=== PATIENT | male | born 1940 | race Caucasian/White ===

== ENCOUNTER 2024-01-21 09:26 | Outpatient (CLI) | payer MEDICARE, SELFPAY ==
--- NOTE | ~2024-01-21 | CT_ITS ---
CT of the Abdomen and Pelvis: Indication: Bladder cancer Technique: 2.5 mm axial scans were obtained through the abdomen and pelvis prior to and following in travenous administration of 130 cc of Omnipaque 350. Dose reduction technique was used on this scan b y utilizing automated exposure control and iterative reconstruction technique. The dose-length produc t (DLP) was 2949.56 mGy-cm. Findings: Scans through the lung bases demonstrate mild peripheral chronic interstitial change. The liver, spleen, pancreas, adrenals and kidneys are within normal limits. Cholecystectomy clips are present. There are atherosclerotic calcifications of the aorta. No lymphadenopathy. No bowel obstruction or bowel wall thickening. Duodenal diverticulum present. There is no evidence to suggest acute appendicitis. Images through the pelvis were performed. Possible mild wall thickening of the posterior bladder. Pro state gland is enlarged with probable TURP defect. Impression: No evidence of metastatic disease. Questionable mild wall thickening of the posterior bladder, nonspecific. This could be reactive or po st therapy change, or could be related to provided history of bladder cancer. No discrete masslike le xochilt clearly evident. Correlate with relevant clinical history and treatment history. 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 Reviewed, dictated and finalized at location . Impression: No evidence of metastatic disease. Questionable mild wall thickening of the posterior bladder, nonspecific. This c ould be reactive or post therapy change, or could be related to provided histor y of bladder cancer. No discrete masslike lesion clearly evident. Correlate wit h relevant clinical history and treatment history. 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
--- NOTE | ~2024-01-21 | CT_ITS ---
CT Scan of the Chest without Contrast: Clinical Indication: Bladder cancer Technique: Contiguous sections were acquired throughout the chest without intravenous contrast. Dose reduction technique was used on this scan by utilizing automated exposure control and iterative recon struction technique. The dose-length product (DLP) was 600.33 mGy-cm. Findings: Mildly prominent mediastinal lymph nodes are present with central calcifications.. The mediastinal so ft tissues appear normal. There is no evidence of pleural or pericardial effusion. There is mild bibasilar chronic interstitial change. There are scattered pulmonary cysts and/or mild edematous change, probably in the right upper lobe. Images through the upper abdomen reveal no abnormalities. Impression: No evidence for metastatic disease in the chest. Mediastinal lymph nodes with central calcifications, compatible prior granulomatous disease, or possi scar sarcoid. Reviewed, dictated and finalized at [facility]. Impression: No evidence for metastatic disease in the chest. Mediastinal lymph nodes with central calcifications, compatible prior granuloma tous disease, or possibly sarcoid.
[2024-01-21 10:07] LABS: Estimated Glomerular Filt Rate 58
== END 2024-01-21 09:27 | disposition home or self-care (01) ==
PROVIDERS: Visit Provider Urology
DX: C67.9 Malignant neoplasm of bladder, unspecified (principal)
CPT/HCPCS: 71250; 74178; Q9967